=== PATIENT | female | born 1965 | race Caucasian/White ===

== ENCOUNTER → 2023-07-15 16:12 | Outpatient (REF) | payer OTHER, SELFPAY | LOC: RAD 16:12 | PROVIDERS: ATTENDING PHYSICIAN Family Medicine | DX: R91.8 Other nonspecific abnormal finding of lung field (principal); F17.211 Nicotine dependence, cigarettes, in remission | CPT/HCPCS: 71250 ==

== ENCOUNTER 2023-07-30 13:14 | Emergency (ER) | payer OTHER, SELFPAY ==
[2023-07-30 13:18] VITALS: BP 180/91
[2023-07-30 14:40] LABS: % Basophils 0.6 % (0-2); % Eosinophils 2.1 % (0-6); % Immature Granulocytes 0.2 % (0-0.5); % Lymphocytes 25.7 % (20.5-51.1); % Neutrophils 63.4 % (42.2-75.2); Absolute Basophils 0.1 10^3/uL (0-0.2); Absolute Eosinophils 0.2 10^3/uL (0-0.7); Absolute Lymphocytes 2.4 10^3/uL (1.2-3.4); Absolute Monocytes 0.8 10^3/uL (0.1-0.6); Hemoglobin 12.9 g/dL (12.0-16.0); Mean Corp Hgb Conc. 34.9 g/dL (33.0-37.0); Mean Corpuscular Hgb 28.8 pg (27.0-31.0); Mean Corpuscular Volume 82.6 fL (81.0-99.0); Mean Platelet Volume 10.6 fL (7.4-10.4); Nucleated Red Blood Cells % 0 %; Platelet Count 322 10^3/uL (130-400); Red Blood Cell Count 4.48 10^6/uL (4.20-5.40); Red Cell Dist. Width 12.5 % (11.5-14.5); White Blood Cell Count 9.5 10^3/uL (4.8-10.8)
[2023-07-30 14:52] LABS: ALT (SGPT) 27 U/L (0-35); AST (SGOT) 24 U/L (14-36); Albumin 4.5 g/dl (3.5-5.0); Alkaline Phosphatase 109 U/L (38-126); Blood Urea Nitrogen 17 mg/dl (7-17); Calcium 9.7 mg/dl (8.4-10.2); Carbon Dioxide 30 mmol/L (22-30); Chloride 103 mmol/L (98-107); Glucose 99 mg/dl (70-99); Potassium 3.7 mmol/L (3.5-5.1); Sodium 138 mmol/L (135-145); Total Bilirubin 0.5 mg/dl (0.2-1.3); Total Protein 7.1 g/dl (6.3-8.2); eGFR > 60.00
[2023-07-30 14:56] LABS: Urine Albumin Trace (Neg - Trace); Urine Bilirubin Negative (Negative); Urine Character Clear (Clear); Urine Color Yellow; Urine Glucose Negative (Negative); Urine Ketone Negative (Negative); Urine Leukocyte 1+ (Negative); Urine Nitrite Negative (Negative); Urine Occult Blood 3+ (Negative); Urine Specific Gravity 1.015 (<1.030); Urine Urobilinogen Negative (Neg - 1+); Urine pH 6.5 (5.0-9.0)
--- NOTE | 2023-07-30 15:04 | ED.GENMED ---
History of Present Illness
General
Chief Complaint: Urinary Symptoms
Source: patient
Exam Limitations: none
Time Seen by Provider: 07/30/23 13:48
Nursing documentation reviewed up to this point in time: agreed with
Travel History
Have you had any contact with someone who has COVID-19?: No
Do you have any symptoms of coronavirus? Fever > 100 degrees, chills, cough, shortness of breath, sore throat, loss of taste or smell, muscle aches, or headache?: No
History of Present Illness
History of Present Illness:
57-year-old female past medical history of hyperlipidemia presenting to the emergency department today with concerns of ongoing frequency and urgency of urination and some dysuria over the past few weeks was recently treated with an antibiotic a
week ago with Bactrim then switched to Macrobid which concluded today. She has had ongoing symptoms despite this treatment. Denies any fevers nausea vomiting or additional concerns mainly just has discomfort to the lower abdomen as well.
Past History
Past History
ED Past Medical History: Hypercholesterolemia
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
Social History
Tobacco: Former smoker
Alcohol: None
Personal: Other (Significant other)
Living: with family
Review of Systems
Review of Systems
Allergies reviewed?: Yes
All Other Systems: ROS reviewed and negative except as documented in HPI and ROS
Phy Exam
Physical Exam
Physical Exam:
GENERAL: Alert , in no apparent distress
EYE: pupils equal and reactive
NECK: Supple, no significant adenopathy.
ENT: o/p clr, mmm.
CARDIAC: Regular rate and rhythm .
LUNGS: Clear breath sounds bilaterally, no acute respiratory distress, no wheezes/rales/rhonchi
ABDOMEN: Soft, without focal tenderness, no r/g, no cvat
NEUROLOGICAL: Alert and oriented, no focal neuro deficits
SKIN: Warm and dry, skin intact.
MUSCULOSKELETAL: No edema, well perfused.
PSYCH: Normal and appropriate interaction.
Course
Orders/Labs/Results
Orders:
Orders
07/30/23 14:27
CT Abd/pel Without Iv Or Oral Urgent
Comment:
Reason For Exam: flank pain
07/30/23 14:28
Complete Blood Count/With Diff Urgent
Comprehensive Metabolic Panel Urgent
Urinalysis Reflex To Culture Urgent
Date Specimen was Collected: 07/30/23
Time Specimen was Collected: 14:21
Urine Microscopic Reflex Cult Urgent
Urine Culture Urgent
VINH Source: U
Specimen Description:
Date Specimen was Collected: 07/30/23
Time Specimen was Collected: 14:21
Abnormal Lab Results
07/30/23
14:28
MPV 10.6 H fL
(7.4-10.4)
Absolute Monos (auto) 0.8 H 10^3/uL
(0.1-0.6)
Ur Occult Blood Reflex 3+ A
(Negative)
Leukocyte Esterase Rfl 1+ A
(Negative)
Urine RBC 7-10 A /HPF
(0-2)
07/30/23 14:28
07/30/23 14:28
Vital Signs
Initial and Last Documented VS:
Initial Vital Signs
Temp Pulse Resp BP Pulse Ox
99.1 F 65 16 180/91 98
07/30/23 13:18 07/30/23 13:18 07/30/23 13:18 07/30/23 13:18 07/30/23 13:18
Last Documented Vital Signs
Temp Pulse Resp BP Pulse Ox
99.1 F 65 16 180/91 98
07/30/23 13:18 07/30/23 13:18 07/30/23 13:18 07/30/23 13:18 07/30/23 13:18
MDM/Problems Addressed
MDM/Problems Addressed:
57-year-old female presenting to the emergency department today with concerns of urinary symptoms over the past week or so. Has been on 2 antibiotics without improvement. On arrival vital signs are normal patient well-appearing no acute distress
does have some minimal suprapubic discomfort no flank pain labs obtained and unremarkable normal renal function test no signs of UTI no white count. CT scan obtained looking for stone which did see a 3 mm obstructing stone. This does explain
patient's symptoms no signs of UTI normal renal function no white count normal vital signs symptoms well-controlled. Patient appears stable for outpatient management will be started on Flomax written for pain medication will follow-up closely with
urology. Return precautions given.
*Critical Care Note
Total Time (30-74mins, 75-104mins- exclusive of procedures): Not Applicable
ED Attending Note
-
Portions of this chart may have been created with voice recognition software.� Occasional wrong word or��sound alike� substitutions may have occurred due to the inherent limitations of voice recognition software.
Discharge Plan
Departure
Patient Disposition: Home (Routine Discharge)
Date of Disposition: 07/30/23
Time of Disposition: 16:47
Patient with high blood pressure during this ER visit?: Yes
Condition: Good
Covid-19: Not Applicable
Discharge Problem:
Kidney stone, Liver mass, Adrenal mass
Instructions: Kidney Stone, Adult ED, BLOOD PRESSURE
Prescriptions:
New
ibuprofen 600 mg tablet
600 mg PO Q6H PRN (Reason: Pain) Qty: 14 0RF
tamsulosin [Flomax] 0.4 mg capsule
0.4 mg PO HS Qty: 14 0RF
No Action
atorvastatin 10 MG tablet
10 mg PO QPM
citalopram 20 MG tablet
20 mg PO DAILY
Referrals:
Robel Brenner MD [Active] - Follow up in 5-7 days
Hiral Osorio MD [Family Provider] -
Activity Restrictions/Additional Instructions:
You came to the emergency department today with concerns of continued urinary symptoms. You are found to have a kidney stone. Please take the prescribed medications and follow-up closely with urology for reassessment. Also had incidental findings
that should be followed up with your primary care doctor. Your blood pressure was elevated here it could be secondary to your symptoms please monitor this moving forward. Return to the emergency department for any worsening, new or concerning
symptoms.
Interventions
Interventions:
*Risk Screen - Suicide Last Done: 07/30/23 13:18
*General Assessment Last Done: 07/30/23 13:18
*Neglect/Abuse Screening Last Done: 07/30/23 13:18
ED-Female Genitourinary Assessment Last Done: 07/30/23 14:14
[2023-07-30 15:14] LABS: Urine Squamous Cell 0-2 /LPF (Few)
[2023-07-30] MEDS: TORADOL 15 MG IV (16:54)
[2023-07-30] MEDS: FLOMAX 0.400000000000000022 MG PO (16:55)
[2023-07-30 17:01] VITALS: BP 180/91
== END 2023-07-30 17:02 | disposition home or self-care (01) ==
LOC: EMR 13:14
PROVIDERS: Physician Assistant; EMERGENCY PHYSICIAN Emergency Medicine; FAMILY PHYSICIAN Family Medicine
DX: N20.0 Calculus of kidney (principal); E27.9 Disorder of adrenal gland, unspecified; R39.15 Urgency of urination; E78.00 Pure hypercholesterolemia, unspecified; Z87.891 Personal history of nicotine dependence
CPT/HCPCS: 99284; 96374; 74176; 80053; 81003; 81015; 85025; 87086

== ENCOUNTER 2023-08-07 14:26 | Day surgery (SDC) | payer OTHER, SELFPAY ==
[2023-08-07 10:37] LABS: Urine Albumin Negative (Neg - Trace); Urine Bilirubin Negative (Negative); Urine Character Clear (Clear); Urine Color Yellow; Urine Glucose Negative (Negative); Urine Ketone Negative (Negative); Urine Leukocyte Negative (Negative); Urine Nitrite Negative (Negative); Urine Occult Blood Trace (Negative); Urine Urobilinogen Negative (Neg - 1+)
[2023-08-07 10:52] LABS: Urine Red Blood Cell 0-2 /HPF (0-2); Urine White Cell 0-2 /HPF (0-5)
[2023-08-07 11:06] LABS: % Basophils 0.6 % (0-2); % Eosinophils 0.8 % (0-6); % Immature Granulocytes 0.4 % (0-0.5); % Lymphocytes 21.4 % (20.5-51.1); % Monocytes 6.2 % (1.7-9.3); % Neutrophils 70.6 % (42.2-75.2); Absolute Eosinophils 0.1 10^3/uL (0-0.7); Absolute Lymphocytes 1.5 10^3/uL (1.2-3.4); Absolute Monocytes 0.4 10^3/uL (0.1-0.6); Hematocrit 37.8 % (37.0-47.0); Hemoglobin 12.9 g/dL (12.0-16.0); Mean Corp Hgb Conc. 34.1 g/dL (33.0-37.0); Mean Corpuscular Volume 84.9 fL (81.0-99.0); Mean Platelet Volume 10.5 fL (7.4-10.4); Nucleated Red Blood Cells % 0 %; Platelet Count 331 10^3/uL (130-400); Red Blood Cell Count 4.45 10^6/uL (4.20-5.40); Red Cell Dist. Width 12.4 % (11.5-14.5); White Blood Cell Count 7.1 10^3/uL (4.8-10.8)
--- NOTE | 2023-08-07 11:12 | ED.GENMED ---
History of Present Illness
General
Chief Complaint: Abdominal Symptoms
Time Seen by Provider: 08/07/23 09:57
Travel History
Have you had any contact with someone who has COVID-19?: No
Do you have any symptoms of coronavirus? Fever > 100 degrees, chills, cough, shortness of breath, sore throat, loss of taste or smell, muscle aches, or headache?: No
History of Present Illness
History of Present Illness:
57-year-old female presents the emergency department for evaluation of ongoing right lower abdominal pain. Was seen here 8 days ago and diagnosed with a 3 mm distal ureteral stone. Has been taking NSAIDs and Flomax without relief. Denies any
fevers or chills. Continues to have frequency of urination but no dysuria.
Past History
Past History
ED Past Medical History: Hypercholesterolemia
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
Social History
Tobacco: Former smoker
Alcohol: None
Personal: Other (Significant other)
Living: with family
Review of Systems
Review of Systems
Allergies reviewed?: Yes
All Other Systems: ROS reviewed and negative except as documented in HPI and ROS
Phy Exam
Physical Exam
Physical Exam:
GEN: Well appearing, NAD, WDWN
HEENT: Oral mucosa moist, no scleral icterus
Cardiac: Regular rate
Lung: No respiratory distress, no tachypnea
MSK: No gross deformity or injuries
Skin: Good color, no pallor or jaundice, no rashes
Neuro: AO x3, moves all extremities freely
Psych: Calm, cooperative
Course
Orders/Labs/Results
Orders:
Orders
08/07/23
CR Abdomen - 1 View Routine
Reason For Exam: RIGHT URETERAL STONE. STONE EXTRACTION
RF Fluoroscopy, C-arm Routine
08/07/23 10:25
UA Reflex to Culture [Urinalysis Reflex To Culture] Urgent
Date Specimen was Collected: 08/07/23
Time Specimen was Collected: 10:24
Urine Microscopic Reflex Cult Urgent
08/07/23 10:53
CR Abdomen - 1 View Urgent
Comment: KUB
Reason For Exam: known kidney stone, continued pain
08/07/23 10:59
Complete Blood Count/With Diff Urgent
Comprehensive Metabolic Panel Urgent
08/07/23 12:38
HYDROmorphone [Dilaudid] 0.25 mg IV PACU-Q5MPRN PRN
HYDROmorphone [Dilaudid] 0.5 mg IV PACU-Q5MPRN PRN
Meperidine [Demerol] 12.5 mg IV PACU-Q5MPRN PRN
Ondansetron Injectable [Zofran] 4 mg IV PACU-ONCEPRN PRN
Prochlorperazine [Compazine] 5 mg IV PACU-ONCEPRN PRN
08/07/23 12:39
Code Status As Directed
Resuscitation Status: Full Code
Acetaminophen [Tylenol] 650 mg PO Q4HPRN PRN
Morphine Sulfate 4 mg IV Q1HPRN PRN
Oxycodone/Acetaminophen [Percocet 5/325] 1 tablet PO Q4HPRN PRN
Oxycodone/Acetaminophen [Percocet 5/325] 2 tablet PO Q4HPRN PRN
Activity As Directed
Activity Level: As Tolerated
Intake/ Output As Directed
Frequency: Per unit guidelines
Notify MD As Directed
Notify physician if: for SDS patients with known or suspected sleep obstructive sleep apnea, monitor in the
PACU.
Notify MD for any apneic/desaturation episodes
Okay to Shower As Directed
Strain Urine As Directed
Vital Signs As Directed
Frequency: Per unit guidelines
O2 Therapy [RESP] Urgent
Titrate/Wean O2 to maintain O2 sat greater than (%): 92
Special Instructions: -Provide supplemental oxygen to achieve O2 sat of 92% or greater.
-After 15 min, may wean O2 and discontinue if patient is able to maintain O2 sat of 92%
or greater during recovery period.
If patient is a discharge home, without oxygen therapy, notify anestheiologist if
unable to maintain O2 SAT of 92% or greater on room air for MD clearance.
08/07/23 12:41
CeFAZolin 2 GRAM [Ancef] 2 grams in 10 ml IV NOW
08/07/23 12:42
Sequential Compression Device [Pneumatic Compression Sleeves] As Directed
Type: Thigh high
Teds [Anti-embolism (COSTA) Hose] As Directed
Type: Thigh high
DX Deep Vein Thrombosis Video Routine
08/07/23 12:45
Normosol (Mult Electrolytes) [Normosol-R] 1,000 ml IV PER PROTOCOL
08/07/23 13:17
Dexamethasone Sod Phosphate [Decadron] 20 mg .ROUTE .STK-MED ONE
Lidocaine HCl/Pf [Xylocaine-Mpf 1% Vial] 50 mg .ROUTE .STK-MED ONE
Ondansetron Injectable [Zofran] 4 mg .ROUTE .STK-MED ONE
Propofol [Diprivan] 20 ml .ROUTE .STK-MED
08/07/23 14:03
Midazolam HCl [Versed] 2 mg .ROUTE .STK-MED ONE
08/07/23 14:27
Acetaminophen [Tylenol] 650 mg PO Q4HPRN PRN
Morphine Sulfate 4 mg IV Q1HPRN PRN
Oxycodone/Acetaminophen [Percocet 5/325] 1 tablet PO Q4HPRN PRN
Oxycodone/Acetaminophen [Percocet 5/325] 2 tablet PO Q4HPRN PRN
08/07/23 14:45
Stone Analysis With Image [S] Routine
Comment: right ureteral stone
08/07/23 15:02
HYDROmorphone [Dilaudid] 0.5 mg .ROUTE .STK-MED ONE
08/07/23 18:00
Atorvastatin [Lipitor] 10 mg PO QPM
Atorvastatin [Lipitor] 10 mg PO QPM
08/07/23 22:00
Tamsulosin [Flomax] 0.4 mg PO HS
Tamsulosin [Flomax] 0.4 mg PO HS
08/08/23 08:00
Citalopram [Celexa] 20 mg PO DAILY
Citalopram [Celexa] 20 mg PO DAILY
Abnormal Lab Results
08/07/23 08/07/23
10:25 10:59
MPV 10.5 H fL
(7.4-10.4)
Carbon Dioxide 32 H mmol/L
(22-30)
Glucose 105 H mg/dl
(70-99)
Ur Occult Blood Reflex Trace A
(Negative)
08/07/23 10:59
08/07/23 10:59
Vital Signs
Initial and Last Documented VS:
Initial Vital Signs
Temp Pulse Resp BP Pulse Ox
98.4 F 67 17 183/91 98
08/07/23 09:38 08/07/23 09:38 08/07/23 09:38 08/07/23 09:38 08/07/23 09:38
Last Documented Vital Signs
Temp Pulse Resp BP Pulse Ox
98.4 F 61 14 147/82 97
08/07/23 09:41 08/07/23 15:15 08/07/23 15:15 08/07/23 15:15 08/07/23 15:15
MDM/Problems Addressed
MDM/Problems Addressed:
Due to failure of outpatient management will be taken for operative intervention by urology, clinically well, no signs of sepsis
*Critical Care Note
Total Time (30-74mins, 75-104mins- exclusive of procedures): Not Applicable
ED Attending Note
-
Portions of this chart may have been created with voice recognition software.� Occasional wrong word or��sound alike� substitutions may have occurred due to the inherent limitations of voice recognition software.
Discharge Plan
Departure
Patient Disposition: Admit
Date of Disposition: 08/07/23
Time of Disposition: 12:44
Presentation/result/management discussed w/ accepting MD/DO: Urology
Discharge Problem:
Ureterolithiasis
Interventions
Interventions:
*Risk Screen - Suicide Last Done: 08/07/23 10:09
*General Assessment Last Done: 08/07/23 10:09
*Neglect/Abuse Screening Last Done: 08/07/23 10:09
ED- Fall Risk Assessment Last Done: 08/07/23 10:10
*ED COVID-19 Vaccine History Last Done: 08/07/23 10:09
*Nursing Disposition Last Done: 08/07/23 13:29
BG-Zpworw-Hjozrimans Assessment Last Done: 08/07/23 10:10
Discharge Date and Time
Discharge Date/Time: 08/07/23 13:29
[2023-08-07 11:23] LABS: ALT (SGPT) 19 U/L (0-35); AST (SGOT) 24 U/L (14-36); Albumin 4.1 g/dl (3.5-5.0); Alkaline Phosphatase 88 U/L (38-126); Blood Urea Nitrogen 9 mg/dl (7-17); Carbon Dioxide 32 mmol/L (22-30); Chloride 101 mmol/L (98-107); Estimated Creatinine Clearance 88 ml/min; Glucose 105 mg/dl (70-99); Potassium 3.8 mmol/L (3.5-5.1); Sodium 140 mmol/L (135-145); Total Bilirubin 0.7 mg/dl (0.2-1.3); Total Protein 6.9 g/dl (6.3-8.2); eGFR > 60.00
--- NOTE | 2023-08-07 12:46 | W.SUR.PREOP ---
Pre-Operative Surgical Note
-
HPI: patient was seen initially in ED on 07/30/23 for a 3 mm obstructing, distal right ureteral stone; an attempted outpatient trial of passage has been characterized by pain, irritative voiding symptoms and fevers, prompting her to return to ED
today.
Plan: Right Ureteroscopy with stone removal and stenting
--- NOTE | 2023-08-07 13:57 | HP.FOC2 ---
Focused History & Physical
Chief Complaint
HPI:
Chief Complaint: Right Ureteral Stone
HPI / Indication for Planned Procedure: patient was seen initially in ED on 07/30/23 for a 3 mm obstructing, distal right ureteral stone; an attempted outpatient trial of passage has been characterized by pain, irritative voiding symptoms and
fevers, prompting her to return to ED today.
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
Relevant Social History: Negative
Relevant Family History: Negative
Relevant Past Surgical History: Negative
Review of Systems
Review of Pertinent Systems: All Systems Negative Except for the Following Positives (irritative voiding symptoms and fevers)
Medication
See Medication form for detailed medications: Yes
Medication List (including Herbals & OTC):
citalopram 20 mg tablet 20 mg PO DAILY Mental Health/Anxiety 08/05/19
ibuprofen 600 mg tablet 600 mg PO Q6H PRN Pain #14 tabs 07/30/23
atorvastatin 20 mg tablet 20 mg PO QPM High Cholesterol 08/07/23
cefdinir 300 mg capsule 300 mg PO BID Infection 08/07/23
solifenacin 10 mg tablet 10 mg PO DAILY@1500 Urinary Issue 08/07/23
tamsulosin 0.4 mg capsule (Flomax) 0.4 mg PO HS Urinary Issue 08/07/23
Medications Reviewed: Yes
Allergies and Reactions
Patient has Allergies: No
Noted Allergies and Reactions:
Allergy/AdvReac Type Severity Reaction Status Date / Time
No Known Allergies Allergy Verified 08/07/23 09:43
Pertinent Physical Exam
All Other Systems: Negative
Head/Neck: Normal
Lungs: Normal
Heart: Normal
Abdomen: Normal
Extremities: Normal
Neurological: Normal
Diagnosis / Assessment
Right Ureteral Stone with persistent pain and now fevers and irritative voiding
Plan / Procedure
Right Ureteroscopy, stone removal, stenting
Anesthesia/Sedation to be done by Anesthesia Provider: Yes
[2023-08-07] MEDS: ANCEF 10 IV (14:15)
[2023-08-07] MEDS: DILAUDID 0.5 MG IV (15:03)
[2023-08-07] MEDS: Pyridium 200 MG PO (15:38)
[2023-08-12 10:05] LABS: Stone Analysis Mass 17 mg
== END 2023-08-07 16:47 | disposition home or self-care (01) ==
LOC: PACU 14:26
PROVIDERS: Physician Assistant; ATTENDING PHYSICIAN Specialist; EMERGENCY PHYSICIAN Emergency Medicine; FAMILY PHYSICIAN Family Medicine
DX: N20.1 Calculus of ureter (principal)
CPT/HCPCS: 52352; 74018; 76000; 80053; 81003; 81015; 82365; 85025; 99284; C1894

== ENCOUNTER → 2023-12-13 10:31 | Outpatient (REF) | payer OTHER, SELFPAY | LOC: WDC 10:31 | PROVIDERS: ATTENDING PHYSICIAN Obstetrics & Gynecology; FAMILY PHYSICIAN Family Medicine | DX: Z12.31 Encounter for screening mammogram for malignant neoplasm of breast (principal) | CPT/HCPCS: 77063; 77067 ==

== ENCOUNTER → 2024-04-07 09:13 | Outpatient (REF) | payer OTHER, SELFPAY | LOC: RAD 09:13 | PROVIDERS: ATTENDING PHYSICIAN Family Medicine | DX: M79.662 Pain in left lower leg (principal) | CPT/HCPCS: 73564; 93971 ==

== ENCOUNTER → 2024-07-24 08:34 | Outpatient (REF) | payer OTHER, SELFPAY | LOC: RAD 08:34 | PROVIDERS: ATTENDING PHYSICIAN Family Medicine | DX: R91.8 Other nonspecific abnormal finding of lung field (principal); F17.211 Nicotine dependence, cigarettes, in remission | CPT/HCPCS: 71250 ==

== ENCOUNTER → 2024-12-16 08:03 | Outpatient (REF) | payer OTHER, SELFPAY | LOC: WDC 08:03 | PROVIDERS: ATTENDING PHYSICIAN Obstetrics & Gynecology; FAMILY PHYSICIAN Family Medicine | DX: Z12.31 Encounter for screening mammogram for malignant neoplasm of breast (principal) | CPT/HCPCS: 77063; 77067 ==

== ENCOUNTER → 2025-02-27 08:37 | Outpatient (REF) | payer OTHER, SELFPAY | LOC: RCS 08:37 | PROVIDERS: ATTENDING PHYSICIAN Nurse Practitioner Adult Health | DX: R03.0 Elevated blood-pressure reading, without diagnosis of hypertension (principal); R00.2 Palpitations | CPT/HCPCS: 93225; 93226 ==